=== PATIENT | female | born 1995 | race Two or more races ===

== ENCOUNTER 2017-02-12 09:44 | Emergency (ER) | payer OTHER ==
[2017-02-12 09:53] VITALS: BP 133/66; PULSE 95; TEMP 99.2; BMI 38.0
[2017-02-12] MEDS ORDERED: DEXAMETHASONE LIQUID 0.5 MG/5 ML 240 ML BULK BOTTLE PO ONE (11:24)
[2017-02-12] MEDS ORDERED: KETOROLAC TROMETHAMINE 60 MG/2 ML VIAL IM ONE (11:25)
[2017-02-12] MEDS ORDERED: KETOROLAC TROMETHAMINE 60 MG/2 ML VIAL ONE (11:28)
[2017-02-12] MEDS ORDERED: DEXAMETHASONE SOD PHOSPHATE 10 MG/1 ML VIAL ONE (11:28)
--- NOTE | 2017-02-12 11:28 | PDOC ---
History of Present Illness - General Chief Complaint: Sore Throat Stated Complaint: THROAT PAIN Time Seen by Provider: 02/12/17 11:14 History Source: Patient Exam Limitations: No Limitations - History of Present Illness Initial Comments: 02/12/17 12:10 My chief complaint: recurrent sore throat History of present illness: She is a 21-year-old female with no significant medical history here today complaining of recurrent sore throat. Patient reports that he had originally had a sore throat on 02/02/2017 went to her primary care doctor had throat culture done that was negative for strep patient reports that she was treated with ibuprofen and felt better had decreased sore throat however by 02/09/2017 patient reports that sore throat recurred and was severe. Patient reports that is difficult to swallow due to soreness of her throat. Patient reports that she originally had a fever the week of 02/02/2017. Patient denies being around any young children that have been sick. Patient reports that currently sore throat radiates slightly towards her left ear. Patient denies any chance of . Patient denies any nasal congestion, cough or any other symptoms. Timing/Duration: getting worse Severity: moderate Associated Symptoms: reports: other (sore throat) Past History - Past Medical History Allergies/Adverse Reactions: Allergies Allergy/AdvReac Type Severity Reaction Status Date / Time Penicillins Allergy Verified 02/12/17 09:53 Home Medications: Ambulatory Orders NK [No Known Home Medication] 02/12/17 Asthma: Yes - Psycho/Social/Smoking Cessation Hx Suicidal Ideation: No Smoking History: Never smoked Information on smoking cessation initiated: No Review of Systems - Review of Systems Able to Perform ROS?: Yes Constitutional: No: Symptoms Reported HEENTM: Yes: Throat Pain Respiratory: No: Symptoms reported Cardiac (ROS): No: Symptoms Reported ABD/GI: No: Symptoms Reported : No: Symptoms Reported Musculoskeletal: No: Symptoms Reported Integumentary: No: Symptoms Reported Neurological: No: Symptoms reported *Physical Exam - Vital Signs Last Vital Signs Temp Pulse Resp BP Pulse Ox 99.2 F 95 H 18 133/66 98 02/12/17 09:51 02/12/17 09:51 02/12/17 09:51 02/12/17 09:51 02/12/17 09:51 - Physical Exam General Appearance: Yes: Appropriately Dressed HEENT: positive: TMs Normal, Pharyngeal Erythema, Tonsillar Erythema (with no uvular deviation). negative: Tonsillar Exudate, Nasal Congestion, Rhinorrhea, Sinus Tenderness Neck: positive: Lymphadenopathy (R), Lymphadenopathy (L) Respiratory/Chest: positive: Lungs Clear, Normal Breath Sounds. negative: Chest Tender, Respiratory Distress Cardiovascular: positive: Regular Rhythm, Regular Rate, S1, S2 Integumentary: positive: Normal Color Neurologic: positive: Alert, Normal Response, Responsive Medical Decision Making - Medical Decision Making 02/12/17 12:13 She is a 21-year-old female with no significant medical history here today complaining of recurrent sore throat. Patient reports that he had originally had a sore throat on 02/02/2017 went to her primary care doctor had throat culture done that was negative for strep patient reports that she was treated with ibuprofen and felt better had decreased sore throat however by 02/09/2017 patient reports that sore throat recurred and was severe. Patient reports that is difficult to swallow due to soreness of her throat. Patient reports that she originally had a fever the week of 02/02/2017. Patient denies being around any young children that have been sick. Patient reports that currently sore throat radiates slightly towards her left ear. Patient denies any chance of . Patient denies any nasal congestion, cough or any other symptoms. 02/12/17 12:16 02/12/17 12:27 r/o strep throat r/o mono tonsillitis PLAN: decadron 10 mg po now toradol 60 mg IM now throat C & S rapid monoscreen negative will treat with azithromycin 250 mg 2 tabs day one than 250 mg daily for following 4 days based on clinical symptoms 02/12/17 12:48 feeling better *DC/Admit/Observation/Transfer Diagnosis at time of Disposition: Acute tonsillitis Qualifiers: Pharyngitis/tonsillitis etiology: unspecified etiology Qualified Code(s): J03.90 - Acute tonsillitis, unspecified - Discharge Dispostion Disposition: HOME Condition at time of disposition: Stable - Patient Instructions Additional Instructions: Throw out her toothbrush at end of treatment Drink a lot of fluids and rest follow up with primary care provider within the next few days Take ibuprofen as needed as instructed by manufacture for pain or fever Return to emergency room if symptoms worsen or new symptoms develop Patient voiced understanding of discharge instructions and all questions were answered
== END 2017-02-12 13:12 | disposition home or self-care (01) ==
LOC: JERFT 09:44
PROC: 3E0233Z Introduction of Anti-inflammatory into Muscle, Percutaneous Approach (ICD-10-PCS; principal; 2017-02-12)
DX: J03.90 Acute tonsillitis, unspecified (principal)
CPT/HCPCS: 36415; 86308; 87070; 87430; 99281-25